=== PATIENT | male | born 1995 | race Caucasian/White ===

== ENCOUNTER 2016-08-25 12:24 | Emergency (ER) | payer MEDICAID, OTHER ==
[2016-08-25 12:24] VITALS: BMI 26.6
[2016-08-25 12:31] VITALS: BP 119/82; PULSE 78; RESP 17; TEMP 98.1; O2SAT 99
--- NOTE | 2016-08-25 13:02 | C.PDOC ---
History Of Present Illness Patient is a 21 year old male with a Hx of asthma who presents to the ER with a complaint of a rash to the bilateral hands taht began on 08/14. Patient states he believes it began after eating oysters; denies Hx of shellfish allergy. 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 Patient states he took a tablet of claritin with improvement to the rash. Denies SOB, difficulty breathing, difficulty swallowing, swelling to the mouth, or swelling to the face. Time Seen by Provider: 08/25/16 12:35 Chief Complaint (Nursing): Allergic Reaction History Per: Patient History/Exam Limitations: no limitations Onset/Duration Of Symptoms: Days (Since 08/14) Current Symptoms Are (Timing): Still Present Context: Food, Other (Rubber gloves) Possible Cause: Food, Other (Rubber gloves) Associated Symptoms: Skin Rash. denies: Swelling, Dyspnea, Trouble Swallowing Home/EMS Treatment: Other (Claritin) Recent travel outside of the [place]: No Past Medical History Reviewed: Historical Data, Nursing Documentation, Vital Signs Vital Signs: Last Vital Signs Temp 98.1 F 08/25/16 12:30 Pulse 78 08/25/16 12:30 Resp 17 08/25/16 12:30 BP 119/82 08/25/16 12:30 Pulse Ox 99 08/25/16 13:12 - Medical History PMH: Asthma Surgical History: No Surg Hx Family History: States: Unknown Family Hx - Social History Hx Alcohol Use: Yes Hx Substance Use: No - Immunization History Hx Tetanus Toxoid Vaccination: No Hx Influenza Vaccination: No Hx Pneumococcal Vaccination: No Review Of Systems ENT: Negative for: Mouth Swelling, Throat Swelling Respiratory: Negative for: Shortness of Breath Skin: Positive for: Rash (Bilateral hands) Physical Exam - Physical Exam Appears: Non-toxic, No Acute Distress Skin: Warm, Dry, Rash (Papules coalesced to bilateral hands, mostly on thenar and hypothenar eminences, scattered on fingers. No erythema, swelling, or extension of rash beyond the wrist.) Head: Atraumatic, Normacephalic Oral Mucosa: Moist Tongue: Normal Appearing, No Swelling Lips: Normal Appearing, No Swelling Throat: Normal, No Erythema, No Other (Swelling) Neck: Normal, Supple Chest: Symmetrical, No Tenderness Cardiovascular: Rhythm Regular, No Murmur Respiratory: Normal Breath Sounds, No Stridor, No Wheezing Neurological/Psych: Oriented x3, Normal Speech, Normal Cognition ED Course And Treatment O2 Sat by Pulse Oximetry: 99 (Room air) Pulse Ox Interpretation: Normal Progress Note: Claritin administered. Medical Decision Making Medical Decision Making: pt reports improvement after taking claritin; likely due to change in gloves at work. will d/c with claritin and med clinic f.u Disposition Counseled Patient/Family Regarding: Diagnosis, Need For Followup, Rx Given - Disposition Referrals: [facility] [Outside] [facility] [Outside] Disposition: HOME/ ROUTINE Disposition Time: 13:00 Condition: STABLE Additional Instructions: Do not wear the blue gloves at work. Check to see what they are made of and avoid use of any gloves from that material. Take Claritin (Loratidine - generic ) 10 mg once a day until rash on hands clears up. Follow up in medical clinic in a few days. Return to ER for any worsening of symptoms. Instructions: Contact Dermatitis (ED) Forms: General Discharge Instructions, Work/School/Gym Excuse - Clinical Impression Clinical Impression: Contact dermatitis - Scribe Statement The provider has reviewed the documentation as recorded by the Scribjudith Moreno All medical record entries made by the Rhettibjudith were at my direction and personally dictated by me. I have reviewed the chart and agree that the record accurately reflects my personal performance of the history, physical exam, medical decision making, and the department course for this patient. I have also personally directed, reviewed, and agree with the discharge instructions and disposition.
== END 2016-08-25 13:09 | disposition home or self-care (01) ==
LOC: C.ER 12:24
DX: L25.9 Unspecified contact dermatitis, unspecified cause (principal)